=== PATIENT | male | born 1990 | race Caucasian/White ===

== ENCOUNTER 2018-06-13 06:16 | Day surgery (SDC) | payer BC ==
[~2018-06-13] VITALS: Ht 167.6 cm; Wt 102.1 kg
[~2018-06-13 06:16] MED LIST: AUGMENTIN875TAB PO; CEPHALEXIN500 MG OR; CIPRODEX1 ML AS; D-ALLERGY PO; IBUPROFEN400 MG OR; LORTAB 5 OR; LORTAB 5/3255 MG PO; LORTAB5 PO; MEDROL4 M1 OR; NASONEX50 MCG/AC; OMNICEF300 MG OR; TYLENOL500 MG OR; ZANTAC 150 PO; ZYRTEC10 MG PO; no home meds
[2018-06-13 09:01] VITALS: BP 136/105
== END 2018-06-13 09:14 | disposition home or self-care (01) | DRG 379 ==
LOC: ORM 06:16
PROVIDERS: ATTEND Surgery
PROC: 0DJD8ZZ Inspection of Lower Intestinal Tract, Via Natural or Artificial Opening Endoscopic (ICD-10-PCS; principal; 2018-06-13)
DX: K62.5 Hemorrhage of anus and rectum (principal); K64.8 Other hemorrhoids; R11.0 Nausea

== ENCOUNTER → 2018-08-03 | Outpatient (REF) | payer BC | END | disposition home or self-care (01) | DRG 556 | LOC: ULTRASND 12:42 | PROVIDERS: ATTEND Nurse Practitioner Family | DX: M79.89 Other specified soft tissue disorders (principal) ==

== ENCOUNTER 2020-12-19 08:00 | Emergency (ER) | payer BC ==
[~2020-12-19] VITALS: Ht 180.3 cm; Wt 118.0 kg
[2020-12-19 08:59] LABS: HEMOGLOBIN 15.4 g/dl (14.0-18.0); IMMATURE GRANULOCYTES 0.2 % (0.0-5.0); MEAN CELL VOLUME 90.4 fL CALC (80.0-100.0); MEAN CORPUSCULAR HGB 30.9 pG CALC (26.0-32.0); MEAN CORPUSCULAR HGB CONC 34.2 g/dL CAL (32.0-36.0); NEUT# 6.7 thou/uL (1.82-7.42); RED BLOOD COUNT 4.98 mill/uL (4.70-6.10); RED CELL DISTRI WIDTH 12.5 % (11.5-15.5)
[2020-12-19] MEDS ORDERED: LISINOPRIL5 MG PO (09:00)
[2020-12-19] MEDS ORDERED: NORVASC5 M1 PO (09:02)
[2020-12-19] MEDS ORDERED: MEDROL DOSEPAK4 MG (09:07)
[2020-12-19 09:08] LABS: ALBUMIN 4.5 g/dL (3.2-5.0); AMYLASE 67 u/l (30-110); BILIRUBIN, TOTAL 0.5 mg/dL (0.0-1.4); BUN 14 mg/dL (9-20); BUN/CREATININE RATIO 13 (12-20 (CALC)); CARBON DIOXIDE 24 mmol/l (22-30); CHLORIDE 95 mmol/l (95-108); GFR > 60 ML/MIN (>=60 (CALC)); GFR FOR AFR.AMER. > 60 ML/MIN (>=60 (CALC)); LIPASE 211 u/l (23-300); POTASSIUM 3.9 mmol/l (3.5-5.1); SGOT/AST 56 u/l (17-59); TOTAL PROTEIN 7.8 g/dL (6.3-8.2)
[2020-12-19] MEDS ORDERED: TIZANIDINE4 MG PO (09:08)
[2020-12-19] MEDS ORDERED: MEDDOSEPAK PO (09:08)
[2020-12-19 09:09] LABS: URINE BILIRUBIN - DIPSTICK NEGATIVE (NEGATIVE); URINE BLOOD DIPSTICK TRACE-INTACT (NEGATIVE); URINE COLOR YELLOW; URINE GLUCOSE - DIPSTICK NEGATIVE (NEGATIVE); URINE KETONE NEGATIVE (NEGATIVE); URINE LEUK ESTERASE NEGATIVE (NEGATIVE); URINE PROTEIN - DIPSTICK TRACE mg/dL (NEG-TRACE); URINE UROBILINOGEN - DIPSTICK 0.2 E.U./dL (0.2)
[2020-12-19 09:12] LABS: ALKALINE PHOSPHATASE 63 u/l (38-126); ANION GAP 16 (6-22 (CALC)); SODIUM 131 mmol/l (137-146)
[2020-12-19 09:16] LABS: URINE NITRITE - DIPSTICK NEGATIVE (Negative)
[2020-12-19] MEDS ORDERED: PROTONIX40 M2 PO (10:47)
[2020-12-19] MEDS ORDERED: DECADRON2 MG PO (10:47)
[2020-12-19] MEDS ORDERED: ZPAK PO (10:47)
[2020-12-19] MEDS ORDERED: HYDROCO/APAP1 TA9 PO (10:47)
[2020-12-19 11:47] VITALS: BP 136/68
== END 2020-12-19 11:48 | disposition home or self-care (01) | DRG 177 ==
LOC: ED 08:00
DX: U07.1 COVID-19 (principal); J12.82 Pneumonia due to coronavirus disease 2019; I10 Essential (primary) hypertension
CPT/HCPCS: Q9967; S0164

== ENCOUNTER 2023-11-15 15:10 | Emergency (ER) | payer BC ==
[~2023-11-15] VITALS: Ht 180.3 cm; Wt 95.2 kg
[2023-11-15] VITALS (7 sets, daily range): BP systolic 124–146; BP diastolic 80–87
[~2023-11-15 15:10] MED LIST changes: +BENZONATATE200 MG PO; +DECADRON2 MG PO; +HYDROCO/APAP1 TA9 PO; +IPRATROPIU0.5 MG/3 M IN; +LISINOPRIL5 MG PO; +MEDDOSEPAK PO; +MEDROL DOSEPAK4 MG; +NEBULIZER KIT/TUBING PO; +NEBULIZER PO; +NORVASC5 M1 PO; +OMEPRAZOLE DR20 MG PO; +ONDANSETRON4 MG PO; +PREDNISONE50 MG PO; +PROTONIX40 M2 PO; +TIZANIDINE4 MG PO; +VENTOLIN HFA108 MCG PO; +ZPAK PO
[2023-11-15] MEDS ORDERED: ASPIRIN 81 MG/TAB PO ONE (15:15)
[2023-11-15 15:39] LABS: BASO% 0.2 % (0-3); EOS% 2.3 % (0-8); HEMATOCRIT 43.7 % (39.0-50.0); HEMOGLOBIN 15.2 g/dl (14.0-18.0); IMMATURE GRANULOCYTES 0.2 % (0.0-5.0); LYMPH% 18.5 % (15-41); MEAN CELL VOLUME 94.8 fL CALC (80.0-100.0); MEAN CORPUSCULAR HGB CONC 34.8 g/dL CAL (32.0-36.0); MONO% 6.2 % (2-13); NEUT# 6.31 thou/uL (1.82-7.42); NEUT% 72.6 % (42-76); RED BLOOD COUNT 4.61 mill/uL (4.70-6.10); RED CELL DISTRI WIDTH 12.2 % (11.5-15.5)
[2023-11-15 15:58] LABS: ALBUMIN 4.9 g/dL (3.2-5.0); ALKALINE PHOSPHATASE 59 u/l (38-126); ANION GAP 10 (6-22 (CALC)); BILIRUBIN, TOTAL 0.8 mg/dL (0.2-1.3); BUN 19 mg/dL (9-20); BUN/CREATININE RATIO 16 (12-20 (CALC)); CARBON DIOXIDE 26 mmol/l (22-30); CHLORIDE 102 mmol/l (95-108); CREATININE 1.2 mg/dL (0.7-1.3); ESTIMATED GFR 83 ML/MIN (>=90 (CALC)); SGOT/AST 76 u/l (17-59); SODIUM 134 mmol/l (137-146); TOTAL PROTEIN 8.3 g/dL (6.3-8.2)
== END 2023-11-15 16:52 | disposition home or self-care (01) | DRG 313 ==
LOC: ED 15:10
PROVIDERS: Family Medicine
DX: R07.89 Other chest pain (principal); I10 Essential (primary) hypertension; F32.A Depression, unspecified; K21.9 Gastro-esophageal reflux disease without esophagitis

== ENCOUNTER 2024-08-08 12:03 | Emergency (ER) | payer BC ==
[2024-08-08] VITALS (14 sets, daily range): BP systolic 112–148; BP diastolic 64–108
[~2024-08-08] VITALS: Ht 180.3 cm; Wt 100.0 kg
[2024-08-08 12:50] LABS: URINE BILIRUBIN - DIPSTICK Negative (NEGATIVE); URINE BLOOD DIPSTICK Negative (NEGATIVE); URINE GLUCOSE - DIPSTICK Negative (NEGATIVE); URINE KETONE Negative (NEGATIVE); URINE LEUK ESTERASE Negative (NEGATIVE); URINE NITRITE - DIPSTICK Negative (Negative); URINE PROTEIN - DIPSTICK Negative (NEG-TRACE); URINE UROBILINOGEN - DIPSTICK 0.2 E.U./dL (0.2)
[2024-08-08 12:53] LABS: URINE COLOR Yellow
[2024-08-08] MEDS ORDERED: SODIUM CHLORIDE 0.9% 1,000 ML IV ONE (12:55)
[2024-08-08 13:05] LABS: BASO% 0.5 % (0-3); EOS% 1.1 % (0-8); HEMATOCRIT 42.3 % (39.0-50.0); HEMOGLOBIN 14.7 g/dl (14.0-18.0); IMMATURE GRANULOCYTES 0.2 % (0.0-5.0); LYMPH% 25.2 % (15-41); MEAN CELL VOLUME 94.8 fL CALC (80.0-100.0); MEAN CORPUSCULAR HGB CONC 34.8 g/dL CAL (32.0-36.0); MONO% 6.5 % (2-13); NEUT# 4.29 thou/uL (1.82-7.42); NEUT% 66.5 % (42-76); RED BLOOD COUNT 4.46 mill/uL (4.70-6.10); RED CELL DISTRI WIDTH 12.1 % (11.5-15.5)
[2024-08-08 13:09] LABS: ALBUMIN 4.7 g/dL (3.2-5.0); BILIRUBIN, TOTAL 1.1 mg/dL (0.2-1.3); CREATININE 1.2 mg/dL (0.7-1.3); POTASSIUM 4.2 mmol/l (3.5-5.1); TOTAL PROTEIN 7.7 g/dL (6.3-8.2)
[2024-08-08] MEDS ORDERED: guaiFENesin-CODEINE 200-20 MG/10 ML UDC PO ONE (15:20)
[2024-08-08] MEDS ORDERED: ROBITUSSIN AC10 ML PO (16:12)
[2024-08-08] MEDS ORDERED: LEVOCETIRIZINE D5 MG PO (16:12)
== END 2024-08-08 16:23 | disposition home or self-care (01) | DRG 204 ==
LOC: ED 12:03
PROVIDERS: Family Medicine; Nurse Practitioner
DX: R05.9 Cough, unspecified (principal); A08.39 Other viral enteritis; I10 Essential (primary) hypertension; F41.9 Anxiety disorder, unspecified; K21.9 Gastro-esophageal reflux disease without esophagitis
CPT/HCPCS: Q9967